=== PATIENT | male | born 1995 | race Caucasian/White ===

== ENCOUNTER 2018-06-02 15:58 | Emergency (ER) | payer BC, OTHER ==
[2018-06-02] MEDS ORDERED: HYDROmorphone 1 MG/ML Syringe IM ONE (16:06)
--- NOTE | 2018-06-02 16:06 | EDM.PDOC ---
<Nusrat Corona - Last Filed: 06/02/18 16:46> ED HPI GENERAL MEDICAL PROBLEM - General Chief Complaint: Upper Extremity Injury/Pain Stated Complaint: LEFT ARM INJURY Time Seen by Provider: 06/02/18 16:06 - History of Present Illness INITIAL COMMENTS - FREE TEXT/NARRATIVE: This is Dr. Corona dictating a procedure note on this patient. After the x- rays were performed and there were pulses both palpable and by Doppler it was decided that due to this extreme angulation of this fracture and displacement of the fracture that it would need at least some reduction before transport to [facility]. Currently we do not have orthopedics coverage and the patient and grandmother bedside are made aware of that. The patient was given IV Dilaudid as well as a local block of lidocaine without epinephrine. Using traction with manipulation of the distal fragment reduction was clinically achieved with significant improvement of the angulation of the distal fracture fragment. Pulses were rechecked and they are strong and palpable. A short arm post mold was placed immediately and postreduction x-rays were ordered. Once these x-rays are reviewed we will contact the orthopedic surgeon at [facility] for transfer of care and further recommendations. The patient tolerated this procedure well and there were no complications - Related Data Allergies Allergy/AdvReac Type Severity Reaction Status Date / Time No Known Allergies Allergy Verified 05/27/15 18:49 Home Meds: Home Meds . [No Known Home Meds] 05/27/15 [History] Course - Vital Signs Last Recorded V/S: Last Vital Signs Temp 96.2 F 06/02/18 16:08 Pulse 82 06/02/18 16:08 Resp 20 06/02/18 16:08 BP 146/80 H 06/02/18 16:08 Pulse Ox 97 06/02/18 16:08 - Orders/Labs/Meds Meds: Medications Discontinued Medications Generic Name Dose Route Start Last Admin Trade Name Freq PRN Reason Stop Dose Admin Hydromorphone HCl 1 mg 06/02/18 16:06 06/02/18 16:19 Dilaudid IM 06/02/18 16:07 Not Given ONETIME ONE Hydromorphone HCl 1 mg 06/02/18 16:07 06/02/18 16:18 Dilaudid IVPUSH 06/02/18 16:08 1 mg ONETIME ONE Administration Hydromorphone HCl 1 mg 06/02/18 16:33 06/02/18 16:39 Dilaudid IVPUSH 06/02/18 16:34 1 mg ONETIME ONE Administration Lidocaine HCl 15 ml 06/02/18 16:26 06/02/18 16:39 Xylocaine-Mpf 1% INJECT 06/02/18 16:27 15 ml ONETIME ONE Administration Ondansetron HCl 4 mg 06/02/18 16:07 06/02/18 16:18 Zofran IVPUSH 06/02/18 16:08 4 mg ONETIME ONE Administration Departure - Departure Disposition: Home, Self-Care 01 Clinical Impression: Colles' fracture of left radius Qualifiers: Encounter type: initial encounter Fracture type: closed Qualified Code(s): S52.532A - Colles' fracture of left radius, initial encounter for closed fracture - Discharge Information Instructions: Colles Fracture Referrals: PCP,None [Primary Care Provider] - Forms: ED Department Discharge Additional Instructions: The following information is given to patients seen in the emergency department who are being discharged to home. This information is to outline your options for follow-up care. We provide all patients seen in our emergency department with a follow-up referral. The need for follow-up, as well as the timing and circumstances, are variable depending upon the specifics of your emergency department visit. If you don't have a primary care physician on staff, we will provide you with a referral. We always advise you to contact your personal physician following an emergency department visit to inform them of the circumstance of the visit and for follow-up with them and/or the need for any referrals to a consulting specialist. The emergency department will also refer you to a specialist when appropriate. This referral assures that you have the opportunity for follow-up care with a specialist. All of these measure are taken in an effort to provide you with optimal care, which includes your follow-up. Under all circumstances we always encourage you to contact your private physician who remains a resource for coordinating your care. When calling for follow-up care, please make the office aware that this follow-up is from your recent emergency room visit. If for any reason you are refused follow-up, please contact the [facility] Emergency Department at and asked to speak to the emergency department charge nurse. [facility] - Orthopedic Clinic: [facility] [address] [place] [address], [address] [place] [address] [facility] [address]: Dr Artemio Conroy (Hand Surgeon) [facility] [id number] 1. Rest, ice, and elevate the affected extremity as able. Keep the splint on until you're cleared by the orthopedic provider. Use the sling to keep the extremity elevated and for comfort purposes. Continue to monitor for the signs that we discussed which included but are not limited to: Numbness of hand, skin cold/discoloration of hand, increased pain, etc... Those symptoms would prompt her to return to the emergency room 2. Tylenol and/or ibuprofen as needed for pain management. [place] for moderate to severe pain. This medication may cause drowsiness a do not take it while driving or needing to be functioning outside of the house. 3. Tomorrow morning please call the orthopedic provider to set up a follow-up appointment. You may call our orthopedic clinic here in [place] or at [facility] in [place] (Dr Conroy [phone]). I would like you evaluated in the next 1-2 days. Return to the ED as needed and as discussed. <Hola Mon E - Last Filed: 06/02/18 17:45> ED HPI GENERAL MEDICAL PROBLEM - General Source of Information: Reports: Patient History Limitations: Reports: No Limitations - History of Present Illness INITIAL COMMENTS - FREE TEXT/NARRATIVE: HISTORY AND PHYSICAL: History of present illness: Patient is a 23-year-old male who presents to the emergency room with complaints of left wrist pain. He states he tripped going up the stairs on an outstretched hand. He has an obvious deformity of the left wrist. Increased pain with palpation or range of motion. He denies any previous injury or trauma at the affected extremity. He denies hitting his head or any loss of consciousness. Denies any other extremity involvement or concerns other than the wrist. He denies any fever, chills, chest pain, shortness of breath or cough. Denies any GI or symptoms. Review of systems: As per history of present illness and below otherwise all systems reviewed and negative. Past medical history: As per history of present illness and as reviewed below otherwise noncontributory. Surgical history: As per history of present illness and as reviewed below otherwise noncontributory. Social history: See social history for further information Family history: As per history of present illness and as reviewed below otherwise noncontributory. Physical exam: General: Well-developed and well-nourished 23-year-old male. Alert and oriented. Nontoxic appearing and in no acute distress. HEENT: Atraumatic, normocephalic, pupils equal and reactive bilaterally, negative for conjunctival pallor or scleral icterus, mucous membranes moist, TMs normal bilaterally, throat clear, neck supple, nontender, trachea midline. No drooling or trismus noted. No meningeal signs. No hot potato voice noted. Lungs: Clear to auscultation, breath sounds equal bilaterally, chest nontender. Heart: S1S2, regular rate and rhythm without overt murmur Abdomen: Soft, nondistended, nontender. Negative for masses or hepatosplenomegaly. Negative for costovertebral tenderness. Pelvis: Stable nontender. Genitourinary: Deferred. Rectal: Deferred. Skin: Intact, warm, dry. No lesions or rashes noted. Extremities: Obvious deformity of the left wrist. Palpable strong radial pulse on the left wrist. Doppler was used to feel the ulnar pulse. Capillary refill less than 3 seconds. Moves all other extremities without difficulty or deficits. Neurovascular unremarkable. Neuro: Awake, alert, oriented. Cranial nerves II through XII unremarkable. Cerebellum unremarkable. Motor and sensory unremarkable throughout. Exam nonfocal. Notes: Comminuted distal radial fracture. There is a dislocation of the shaft posterior relation to the proximal fracture fragment. The radial pulse was palpable and strong. Ulnar pulse was audible with the Doppler. Patient was educated on the need for closed reduction, he is agreeable. Hematoma block with 1% lidocaine along with IV Dilaudid. This was easily reduced by myself and Dr. Corona. (Please see Cj's note). Postreduction he does have a strong radial and ulnar pulse. He is able to move his fingertips and has good sensation. A half cast fiberglass splint was applied and education was given. We'll provide with a sling for comfort. He states that he does feel improved after the reduction although does have some mild to moderate pain due to the fracture. Dr Artemio Conroy, hand surgeon at [facility] in [place], was consult did on this case. He states that as long as the pulses are palpable and it has been reduced the patient may be discharged to home with pain medication and splint, to follow -up with orthopedic in the next 1-3 days. Post reduction shows a less displaced and angulation compared with the prior study. I did get consent from the patient to electronically send pictures of the pre-and post reduction x-rays to the hand surgeon. Dr. Conroy reports that it does look improved and he will end up needing surgery but does not need to the emergently transferred today. Patient does have good sensation to the first second and third digit with minimal sensation of the fourth and fifth digit. He is able to move all digits, limited. Rafiq reports that they prefer the swelling to go down her to doing surgery. This conversation/consult was discussed with patient and family member at bedside. I did give them Dr. Artemio Conroy phone number along with our local orthopedic provider should be available to make an appointment on Sunday. They may choose where to receive their orthopedic care. Diagnostics: X-ray right wrist Therapeutics: Pretty Rojas Impression: Displaced fracture of the distal radius, closed, left Plan: 1. Rest, ice, and elevate the affected extremity as able. Keep the splint on until you're cleared by the orthopedic provider. Use the sling to keep the extremity elevated and for comfort purposes. Continue to monitor for the signs that we discussed which included but are not limited to: Numbness of hand, skin cold/discoloration of hand, increased pain, etc... Those symptoms would prompt her to return to the emergency room 2. Tylenol and/or ibuprofen as needed for pain management. [place] for moderate to severe pain. This medication may cause drowsiness a do not take it while driving or needing to be functioning outside of the house. 3. Tomorrow morning please call the orthopedic provider to set up a follow-up appointment. You may call our orthopedic clinic here in [place] or at [facility] in [place] (Dr Conroy [phone]). I would like you evaluated in the next 1-2 days. Return to the ED as needed and as discussed. Definitive disposition and diagnosis as appropriate pending reevaluation and review of above. left forearm Pain Score (Numeric/FACES): 10 Past Medical History - Past Health History Medical/Surgical History: Denies Medical/Surgical History Review of Systems - Review of Systems Review Of Systems: ROS reveals no pertinent complaints other than HPI. ED EXAM, GENERAL - Physical Exam Exam: See Below (See dictation) Course - Vital Signs Last Recorded V/S: Last Vital Signs Temp 96.2 F 06/02/18 16:08 Pulse 82 06/02/18 16:08 Resp 20 06/02/18 16:08 BP 146/80 H 06/02/18 16:08 Pulse Ox 97 06/02/18 16:08 - Orders/Labs/Meds Meds: Medications Discontinued Medications Generic Name Dose Route Start Last Admin Trade Name Freq PRN Reason Stop Dose Admin Hydromorphone HCl 1 mg 06/02/18 16:06 06/02/18 16:19 Dilaudid IM 06/02/18 16:07 Not Given ONETIME ONE Hydromorphone HCl 1 mg 06/02/18 16:07 06/02/18 16:18 Dilaudid IVPUSH 06/02/18 16:08 1 mg ONETIME ONE Administration Hydromorphone HCl 1 mg 06/02/18 16:33 06/02/18 16:39 Dilaudid IVPUSH 06/02/18 16:34 1 mg ONETIME ONE Administration Lidocaine HCl 15 ml 06/02/18 16:26 06/02/18 16:39 Xylocaine-Mpf 1% INJECT 06/02/18 16:27 15 ml ONETIME ONE Administration Ondansetron HCl 4 mg 06/02/18 16:07 06/02/18 16:18 Zofran IVPUSH 06/02/18 16:08 4 mg ONETIME ONE Administration Departure - Departure Time of Disposition: 17:07
[2018-06-02] MEDS ORDERED: HYDROmorphone 2 MG/ML Syringe IVPUSH ONE (16:07)
[2018-06-02] MEDS ORDERED: Ondansetron 4 MG/2 ML SDV IVPUSH ONE (16:07)
--- NOTE | 2018-06-02 16:28 | CR ---
Indication: Tripped on stairs. Technique: Two views of the left wrist were obtained. Comparison: None Findings: A comminuted fracture of the distal radius is identified. This is an intra-articular fracture. The distal fracture fragment is dislocated 1 shaft with posterior relation to the proximal fracture fragment. Impression: Comminuted distal radial fracture. Dictated by Noni Betancourt MD @ Jun 02 2018 4:26PM Signed by Dr. Noni Betancourt @ Jun 02 2018 4:26PM
[2018-06-02] MEDS ORDERED: HYDROmorphone 1 MG/ML Syringe IVPUSH ONE (16:33)
--- NOTE | 2018-06-02 17:20 | CR ---
INDICATION: Post reduction. COMPARISON: X-rays 06/02/2018. Findings called Comminuted impacted intra-articular distal radius fracture with dorsal displacement and angulation. There is less displacement and angulation compared to the prior study. Overlying cast obscures fine osseous details. Dictated by Anabel Marcial MD @ Jun 02 2018 5:16PM Signed by Dr. Anabel Marcial @ Jun 02 2018 5:18PM
[2018-06-02 18:00] VITALS: BP 150/77
== END 2018-06-02 17:59 | disposition home or self-care (01) ==
LOC: MW.ED 15:58
DX: S52.532A Colles' fracture of left radius, initial encounter for closed fracture (principal); X50.9XXA Other and unspecified overexertion or strenuous movements or postures, initial encounter
CPT/HCPCS: 25605; 73100; 96374; 96375; 99283; J1170; J2405

== ENCOUNTER 2018-07-06 15:11 | Emergency (ER) | payer BC ==
[2018-07-06] MEDS ORDERED: Diphtheria,Pertussis(Acell),Tetanus Vaccine 0.5 ML Syringe IM ONE (15:24)
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
[2018-07-06] MEDS ORDERED: Diphtheria,Pertussis(Acell),Tetanus Vaccine 0.5 ML Syringe ONE (15:35)
[2018-07-06 15:36] VITALS: BP 113/71
== END 2018-07-06 15:45 | disposition home or self-care (01) ==
LOC: MW.ED 15:11
DX: T23.022D Burn of unspecified degree of single left finger (nail) except thumb, subsequent encounter (principal); X58.XXXD Exposure to other specified factors, subsequent encounter
CPT/HCPCS: 90471; 90715; 99282

== ENCOUNTER 2018-11-05 08:40 | Emergency (ER) | payer BC ==
[2018-11-05] MEDS ORDERED: Silver Sulfadiazine 1% Crm 50 GM Tube TOP ONE (08:46)
[2018-11-05] MEDS ORDERED: Morphine 10 MG/ML Syringe IM ONE (08:49)
[2018-11-05] MEDS ORDERED: Ondansetron 4 MG Tab.DIS PO ONE (08:49)
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
[2018-11-05 09:26] VITALS: BP 126/90
== END 2018-11-05 09:25 | disposition home or self-care (01) ==
LOC: MW.ED 08:40
DX: T23.271A Burn of second degree of right wrist, initial encounter (principal); T22.111A Burn of first degree of right forearm, initial encounter; T23.001A Burn of unspecified degree of right hand, unspecified site, initial encounter; X10.2XXA Contact with fats and cooking oils, initial encounter
CPT/HCPCS: 16020; 96372; 99283; A9270; J2270

== ENCOUNTER 2018-11-10 11:34 | Emergency (ER) | payer OTHER, BC ==
[2018-11-10] MEDS ORDERED: Silver Sulfadiazine 1% Crm 50 GM Tube TOP ONE (11:53)
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
[2018-11-10 12:14] VITALS: BP 114/68
== END 2018-11-10 12:12 | disposition home or self-care (01) ==
LOC: MW.ED 11:34
DX: T22.211D Burn of second degree of right forearm, subsequent encounter (principal); X10.2XXD Contact with fats and cooking oils, subsequent encounter
CPT/HCPCS: 16020; 99283; A9270

== ENCOUNTER 2018-12-23 09:56 | Emergency (ER) | payer BC, OTHER ==
[2018-12-23 10:00] VITALS: BP 135/77
[2018-12-23] MEDS ORDERED: Aspirin 81 MG Tab.Chew PO ONE (10:00)
--- NOTE | 2018-12-23 10:25 | EDM.PDOC ---
ED HPI GENERAL MEDICAL PROBLEM - General Chief Complaint: Chest Pain Stated Complaint: CHEST DISCOMFORT Time Seen by Provider: 12/23/18 09:56 Source of Information: Reports: Patient History Limitations: Reports: No Limitations - History of Present Illness INITIAL COMMENTS - FREE TEXT/NARRATIVE: HISTORY AND PHYSICAL: History of present illness: Patient is a 23-year-old male presents to the ED today with concern of mid chest pain 1 hour ago. Patient states he was standing at work when suddenly he had midsternal chest pain. She states it makes him feel slightly short of breath. Patient states he has not had these symptoms before and denies any health history. Patient states he has had a sore throat over the past couple days as well as well as had an increase in cough. Patient states nothing makes her pain better or worse and the pain does not radiate anywhere. Patient denies any other symptoms or concerns. Patient states he smokes a pack a day and has so for a few years Patient denies fever, chills. Denies headache, neck stiff ness, change in vision , syncope, or near syncope. Denies nausea, vomiting, abdominal pain, diarrhea, constipation, or dysuria. Has not noted any blood in urine or stool. Patient has been eating and drinking appropriately. Review of systems: As per history of present illness and below otherwise all systems reviewed and negative. Past medical history: As per history of present illness and as reviewed below otherwise noncontributory. Surgical history: As per history of present illness and as reviewed below otherwise noncontributory. Social history: See social history for further information Family history: As per history of present illness and as reviewed below otherwise noncontributory. Physical exam: General: Patient is alert, oriented, and in no acute distress. Patient sitting comfortably on exam table. HEENT: Atraumatic, normocephalic, pupils equal and reactive bilaterally, negative for conjunctival pallor or scleral icterus, mucous membranes moist, TMs normal bilaterally, throat is moderately erythematous and tonsils are mildly enlarged without white exudate, neck supple, nontender, trachea midline. No drooling or trismus noted. No meningeal signs. No hot potato voice noted. Lungs: Clear to auscultation, breath sounds equal bilaterally, chest nontender. Heart: S1S2, regular rate and rhythm without overt murmur Abdomen: Soft, nondistended, nontender. Negative for masses or hepatosplenomegaly. Negative for costovertebral tenderness. Pelvis: Stable nontender. Genitourinary: Deferred. Rectal: Deferred. Skin: Intact, warm, dry. No lesions or rashes noted. Extremities: Atraumatic, negative for cords or calf pain. Neurovascular unremarkable. Neuro: Awake, alert, oriented. Cranial nerves II through XII unremarkable. Cerebellum unremarkable. Motor and sensory unremarkable throughout. Exam nonfocal. Notes: Patient expresses resolution of symptoms throughout stay in ED. Patient has been having a progressive cough over the past week. Will treat for a potential early pneumonia. Voices understanding and is agreeable to plan of care. Denies any further questions or concerns at this time. Diagnostics: CBC, CMP, UA, EKG, chest x-ray, UA, troponin, lipase Therapeutics: Aspirin Prescription: Pro-air inhaler, Azithromycin Impression: Chest pain Cough Tonsillitis Plan: 1. Use inhaler as prescribed. Follow-up with your primary care provider as discussed. 2. You can alternate ibuprofen and Tylenol as directed for pain and discomfort. Return to the ED as needed and as discussed. Definitive disposition and diagnosis as appropriate pending reevaluation and review of above. CHEST Pain Score (Numeric/FACES): 2 - Related Data Allergies Allergy/AdvReac Type Severity Reaction Status Date / Time No Known Allergies Allergy Verified 12/23/18 09:58 Home Meds: Home Meds . [No Known Home Meds] 12/23/18 [History] Past Medical History - Past Health History Medical/Surgical History: Denies Medical/Surgical History HEENT History: Reports: None Cardiovascular History: Reports: None Respiratory History: Reports: None Gastrointestinal History: Reports: None Genitourinary History: Reports: None Musculoskeletal History: Reports: None Neurological History: Reports: None Psychiatric History: Reports: None Endocrine/Metabolic History: Reports: None Hematologic History: Reports: None Immunologic History: Reports: None Oncologic (Cancer) History: Reports: None Dermatologic History: Reports: None - Infectious Disease History Infectious Disease History: Reports: Chicken Pox, Shingles - Past Surgical History Head Surgeries/Procedures: Reports: None HEENT Surgical History: Reports: None Cardiovascular Surgical History: Reports: None Respiratory Surgical History: Reports: None GI Surgical History: Reports: None Male Surgical History: Reports: None Endocrine Surgical History: Reports: None Neurological Surgical History: Reports: None Musculoskeletal Surgical History: Reports: Other (See Below) Other Musculoskeletal Surgeries/Procedures:: left wrist, plate/brittney/screws Oncologic Surgical History: Reports: None Dermatological Surgical History: Reports: None Social & Family History - Family History Family Medical History: Noncontributory - Tobacco Use Smoking Status *Q: Current Every Day Smoker Years of Tobacco use: 6 Packs/Tins Daily: 0.5 - Caffeine Use Caffeine Use: Reports: None - Recreational Drug Use Recreational Drug Use: No ED ROS GENERAL - Review of Systems Review Of Systems: ROS reveals no pertinent complaints other than HPI. ED EXAM, GENERAL - Physical Exam Exam: See Below (see dictation) Course - Vital Signs Last Recorded V/S: Last Vital Signs Temp 36.9 C 12/23/18 09:58 Pulse 92 12/23/18 09:58 Resp 16 12/23/18 09:58 BP 135/77 12/23/18 09:58 Pulse Ox 98 12/23/18 09:58 - Orders/Labs/Meds Orders: Active Orders 24 hr Category Date Time Status EKG Documentation Completion [RC] STAT Care 12/23/18 09:56 Active CULTURE STREP A CONFIRMATION [RM] Stat Lab 12/23/18 11:15 Results CULTURE URINE [RM] Stat Lab 12/23/18 10:25 Received STREP SCRN A RAPID W CULT CONF [RM] Stat Lab 12/23/18 11:15 Results UA W/MICROSCOPIC [URIN] Stat Lab 12/23/18 10:25 Results Labs: Laboratory Tests 12/23/18 12/23/18 12/23/18 Range/Units 09:57 10:09 10:09 WBC 14.03 H (4.0-11.0) K/uL RBC 4.73 (4.50-5.90) M/uL Hgb 14.3 (13.0-17.0) g/dL Hct 43.3 (38.0-50.0) % MCV 91.5 (80.0-98.0) fL MCH 30.2 (27.0-32.0) pg MCHC 33.0 (31.0-37.0) g/dL RDW Std Deviation 43.7 (28.0-62.0) fl RDW Coeff of Brian 13 (11.0-15.0) % Plt Count 271 (150-400) K/uL MPV 9.10 (7.40-12.00) fL Neut % (Auto) 84.4 H (48.0-80.0) % Lymph % (Auto) 8.6 L (16.0-40.0) % [place] % (Auto) 5.8 (0.0-15.0) % Eos % (Auto) 1.0 (0.0-7.0) % Baso % (Auto) 0.2 (0.0-1.5) % Neut # (Auto) 11.8 H (1.4-5.7) K/uL Lymph # (Auto) 1.2 (0.6-2.4) K/uL [place] # (Auto) 0.8 (0.0-0.8) K/uL Eos # (Auto) 0.1 (0.0-0.7) K/uL Baso # (Auto) 0.0 (0.0-0.1) K/uL Nucleated RBC % 0.0 /100WBC Nucleated RBCs # 0 K/uL Sodium 138 (136-148) mmol/L Potassium 3.9 (3.5-5.1) mmol/L Chloride 105 (98-107) mmol/L Carbon Dioxide 22.4 (21.0-32.0) mmol/L BUN 9 (7.0-18.0) mg/dL Creatinine 1.1 (0.8-1.3) mg/dL Est Cr Clr Drug Dosing 95.06 mL/min Estimated GFR (MDRD) > 60.0 ml/min Glucose 131 H (74-106) mg/dL Calcium 9.1 (8.5-10.1) mg/dL Total Bilirubin 0.3 (0.2-1.0) mg/dL AST 14 L (15-37) IU/L ALT 22 (14-63) IU/L Alkaline Phosphatase 84 (46-116) U/L Troponin I < 0.050 (0.000-0.056) ng/mL Total Protein 6.8 (6.4-8.2) g/dL Albumin 3.4 (3.4-5.0) g/dL Globulin 3.4 (2.6-4.0) g/dL Albumin/Globulin Ratio 1.0 (0.9-1.6) Lipase 59 L (73-393) U/L Urine Color Urine Appearance Urine pH (5.0-8.0) Ur Specific [place] (1.001-1.035) Urine Protein (NEGATIVE) mg/dL Urine Glucose (UA) (NEGATIVE) mg/dL Urine Ketones (NEGATIVE) mg/dL Urine Occult Blood (NEGATIVE) Urine Nitrite (NEGATIVE) Urine Bilirubin (NEGATIVE) Urine Urobilinogen (<2.0) EU/dL Ur Leukocyte Esterase (NEGATIVE) 12/23/18 Range/Units 10:25 WBC (4.0-11.0) K/uL RBC (4.50-5.90) M/uL Hgb (13.0-17.0) g/dL Hct (38.0-50.0) % MCV (80.0-98.0) fL MCH (27.0-32.0) pg MCHC (31.0-37.0) g/dL RDW Std Deviation (28.0-62.0) fl RDW Coeff of Brian (11.0-15.0) % Plt Count (150-400) K/uL MPV (7.40-12.00) fL Neut % (Auto) (48.0-80.0) % Lymph % (Auto) (16.0-40.0) % [place] % (Auto) (0.0-15.0) % Eos % (Auto) (0.0-7.0) % Baso % (Auto) (0.0-1.5) % Neut # (Auto) (1.4-5.7) K/uL Lymph # (Auto) (0.6-2.4) K/uL [place] # (Auto) (0.0-0.8) K/uL Eos # (Auto) (0.0-0.7) K/uL Baso # (Auto) (0.0-0.1) K/uL Nucleated RBC % /100WBC Nucleated RBCs # K/uL Sodium (136-148) mmol/L Potassium (3.5-5.1) mmol/L Chloride (98-107) mmol/L Carbon Dioxide (21.0-32.0) mmol/L BUN (7.0-18.0) mg/dL Creatinine (0.8-1.3) mg/dL Est Cr Clr Drug Dosing mL/min Estimated GFR (MDRD) ml/min Glucose (74-106) mg/dL Calcium (8.5-10.1) mg/dL Total Bilirubin (0.2-1.0) mg/dL AST (15-37) IU/L ALT (14-63) IU/L Alkaline Phosphatase (46-116) U/L Troponin I (0.000-0.056) ng/mL Total Protein (6.4-8.2) g/dL Albumin (3.4-5.0) g/dL Globulin (2.6-4.0) g/dL Albumin/Globulin Ratio (0.9-1.6) Lipase (73-393) U/L Urine Color YELLOW Urine Appearance CLEAR Urine pH 6.0 (5.0-8.0) Ur Specific [place] >= 1.030 (1.001-1.035) Urine Protein NEGATIVE (NEGATIVE) mg/dL Urine Glucose (UA) NEGATIVE (NEGATIVE) mg/dL Urine Ketones NEGATIVE (NEGATIVE) mg/dL Urine Occult Blood NEGATIVE (NEGATIVE) Urine Nitrite NEGATIVE (NEGATIVE) Urine Bilirubin NEGATIVE (NEGATIVE) Urine Urobilinogen 0.2 (<2.0) EU/dL Ur Leukocyte Esterase TRACE H (NEGATIVE) Meds: Medications Discontinued Medications Generic Name Dose Route Start Last Admin Trade Name Vanita PRN Reason Stop Dose Admin Aspirin 324 mg 12/23/18 10:00 12/23/18 10:26 Aspirin PO 12/23/18 10:01 324 mg ONETIME ONE Administration Departure - Departure Time of Disposition: 11:48 Disposition: Home, Self-Care 01 Clinical Impression: Cough, Tonsillitis Chest pain Qualifiers: Chest pain type: unspecified Qualified Code(s): R07.9 - Chest pain, unspecified - Discharge Information Referrals: PCP,Unobtain [Primary Care Provider] - Forms: ED Department Discharge Additional Instructions: The following information is given to patients seen in the emergency department who are being discharged to home. This information is to outline your options for follow-up care. We provide all patients seen in our emergency department with a follow-up referral. The need for follow-up, as well as the timing and circumstances, are variable depending upon the specifics of your emergency department visit. If you don't have a primary care physician on staff, we will provide you with a referral. We always advise you to contact your personal physician following an emergency department visit to inform them of the circumstance of the visit and for follow-up with them and/or the need for any referrals to a consulting specialist. The emergency department will also refer you to a specialist when appropriate. This referral assures that you have the opportunity for follow-up care with a specialist. All of these measure are taken in an effort to provide you with optimal care, which includes your follow-up. Under all circumstances we always encourage you to contact your private physician who remains a resource for coordinating your care. When calling for follow-up care, please make the office aware that this follow-up is from your recent emergency room visit. If for any reason you are refused follow-up, please contact the [facility] Emergency Department at and asked to speak to the emergency department charge nurse. [facility] [address] [place] [id number] [facility] [address] [place] [id number] 1. Use inhaler as prescribed. Follow-up with your primary care provider as discussed. 2. You can alternate ibuprofen and Tylenol as directed for pain and discomfort. Return to the ED as needed and as discussed. - My Orders Last 24 Hours: My Active Orders 12/23/18 09:56 EKG Documentation Completion [RC] STAT 12/23/18 10:25 CULTURE URINE [RM] Stat UA W/MICROSCOPIC [URIN] Stat 12/23/18 11:15 CULTURE STREP A CONFIRMATION [RM] Stat STREP SCRN A RAPID W CULT CONF [RM] Stat - Assessment/Plan Last 24 Hours: My Active Orders 12/23/18 09:56 EKG Documentation Completion [RC] STAT 12/23/18 10:25 CULTURE URINE [RM] Stat UA W/MICROSCOPIC [URIN] Stat 12/23/18 11:15 CULTURE STREP A CONFIRMATION [RM] Stat STREP SCRN A RAPID W CULT CONF [RM] Stat
[2018-12-23 10:40] LABS: CHLORIDE,CL 105 mmol/L (98-107); SODIUM,NA 138 mmol/L (136-148)
--- NOTE | 2018-12-23 11:06 | CR ---
INDICATION: Chest pain. Findings: A single portable CXR shows a normal cardiac and mediastinal silhouette. The lungs show no focal pulmonary opacities. Sharp pleural margins. No pneumothorax. Impression: No evidence of acute pulmonary abnormalities. Dictated by: Magno Marcial MD @ 12/23/2018 11:04:35 (Electronically Signed)
== END 2018-12-23 12:05 | disposition home or self-care (01) ==
LOC: MW.ED 09:56
DX: J03.90 Acute tonsillitis, unspecified (principal); R07.2 Precordial pain; F17.210 Nicotine dependence, cigarettes, uncomplicated
CPT/HCPCS: 36415; 71045; 80053; 81001; 83690; 84484; 85025; 87081; 87086; 87880; 93005; 99285; A9270; 99283

== ENCOUNTER 2019-01-06 06:51 | Emergency (ER) | payer BC ==
[2019-01-06] MEDS ORDERED: LORazepam 1 MG Tab PO ONE (07:07)
[2019-01-06 07:58] LABS: BLOOD UREA NITROGEN,BUN 10 mg/dL (7.0-18.0); CARBON DIOXIDE,CO2 26.5 mmol/L (21.0-32.0); CHLORIDE,CL 104 mmol/L (98-107); GLUCOSE RANDOM 96 mg/dL (74-106); POTASSIUM,K 4.4 mmol/L (3.5-5.1); SODIUM,NA 142 mmol/L (136-148)
--- NOTE | 2019-01-06 08:25 | CR ---
HISTORY: Chest pain, shortness of breath. TECHNIQUE: Two views of the chest. COMPARISON: 12/23/2018. FINDINGS: No acute lung infiltrate or pulmonary edema. No pneumothorax or pleural effusion. Cardiac size and pulmonary vasculature within normal limits. No acute bony abnormality. IMPRESSION: No acute disease. Dictated by Nik Funez MD @ 01/06/2019 8:23:17 AM Dictated by: Nik Funez MD @ 01/06/2019 08:23:25 (Electronically Signed)
--- NOTE | 2019-01-06 08:31 | EDM.PDOC ---
ED HPI GENERAL MEDICAL PROBLEM - General Chief Complaint: Chest Pain Stated Complaint: CHEST PAIN Time Seen by Provider: 01/06/19 07:00 Source of Information: Reports: Patient History Limitations: Reports: No Limitations - History of Present Illness INITIAL COMMENTS - FREE TEXT/NARRATIVE: History of present illness: []Patient presents with chest pain and shortness of breath while standing. He was seen here on December 25 with the same symptoms with a negative workup. Is given an albuterol inhaler, antibiotics and steroids without relief. Review of systems: As per history of present illness and below otherwise all systems reviewed and negative. Past medical history: As per history of present illness and as reviewed below otherwise noncontributory. Surgical history: As per history of present illness and as reviewed below otherwise noncontributory. Social history: No reported history of drug or alcohol abuse. Family history: As per history of present illness and as reviewed below otherwise noncontributory. Physical exam: General: Well developed, well nourished in NAD HEENT: Atraumatic, normocephalic, pupils reactive, negative for conjunctival pallor or scleral icterus, mucous membranes moist, throat clear, neck supple, nontender, trachea midline. Lungs: Clear to auscultation, breath sounds equal bilaterally, chest nontender. Heart: S1S2, regular, negative for clicks, rubs, or JVD. Abdomen: NABS, Soft, nondistended, nontender. Negative for masses or hepatosplenomegaly. Negative for costovertebral tenderness. Pelvis: Stable nontender. Genitourinary: Deferred. Rectal: Deferred. Extremities: Atraumatic, negative for cords or calf pain. Neurovascular unremarkable. Neuro: Awake, alert, oriented. Cranial nerves II through XII unremarkable. Cerebellum unremarkable. Motor and sensory unremarkable throughout. Exam nonfocal. Skin:warm and dry Diagnostics: EKG, chest x-ray, CBC, chemistry, drug screen, troponin Therapeutics: Monitored, Ativan ED Course: Stable, improved Impression: Cocaine use Prescriptions: None Plan: Take meds as directed, follow up with your primary care physician, return to ER if symptoms worsen or change. Definitive disposition and diagnosis as appropriate pending reevaluation and review of above. chest Pain Score (Numeric/FACES): 6 - Related Data Allergies Allergy/AdvReac Type Severity Reaction Status Date / Time No Known Allergies Allergy Verified 01/06/19 07:01 Home Meds: Home Meds . [No Known Home Meds] 12/23/18 [History] Past Medical History - Past Health History Medical/Surgical History: Denies Medical/Surgical History HEENT History: Reports: None Cardiovascular History: Reports: None Respiratory History: Reports: Other (See Below) Other Respiratory History: pneumonia Gastrointestinal History: Reports: None Genitourinary History: Reports: None Musculoskeletal History: Reports: None Neurological History: Reports: None Psychiatric History: Reports: None Endocrine/Metabolic History: Reports: None Hematologic History: Reports: None Immunologic History: Reports: None Oncologic (Cancer) History: Reports: None Dermatologic History: Reports: None - Infectious Disease History Infectious Disease History: Reports: Chicken Pox, Shingles - Past Surgical History Head Surgeries/Procedures: Reports: None HEENT Surgical History: Reports: None Cardiovascular Surgical History: Reports: None GI Surgical History: Reports: None Male Surgical History: Reports: None Endocrine Surgical History: Reports: None Neurological Surgical History: Reports: None Musculoskeletal Surgical History: Reports: Other (See Below) Other Musculoskeletal Surgeries/Procedures:: left wrist, plate/brittney/screws Oncologic Surgical History: Reports: None Dermatological Surgical History: Reports: None Social & Family History - Family History Family Medical History: Noncontributory - Tobacco Use Smoking Status *Q: Current Every Day Smoker Years of Tobacco use: 5 Packs/Tins Daily: 1 - Caffeine Use Caffeine Use: Reports: None - Recreational Drug Use Recreational Drug Use: No ED ROS GENERAL - Review of Systems Review Of Systems: See Below ED EXAM, GENERAL - Physical Exam Exam: See Below Course - Vital Signs Last Recorded V/S: Last Vital Signs Temp 97 F 01/06/19 06:51 Pulse 88 01/06/19 06:51 Resp 32 H 01/06/19 06:51 BP 129/78 01/06/19 06:51 Pulse Ox 99 01/06/19 06:51 - Orders/Labs/Meds Orders: Active Orders 24 hr Category Date Time Status EKG Documentation Completion [RC] STAT Care 01/06/19 06:58 Active EKG Documentation Completion [RC] STAT Care 01/06/19 07:07 Inactive Labs: Laboratory Tests 01/06/19 01/06/19 01/06/19 Range/Units 07:07 07:29 07:29 WBC 14.65 H (4.0-11.0) K/uL RBC 5.04 (4.50-5.90) M/uL Hgb 15.2 (13.0-17.0) g/dL Hct 45.1 (38.0-50.0) % MCV 89.5 (80.0-98.0) fL MCH 30.2 (27.0-32.0) pg MCHC 33.7 (31.0-37.0) g/dL RDW Std Deviation 41.7 (28.0-62.0) fl RDW Coeff of Brian 13 (11.0-15.0) % Plt Count 328 (150-400) K/uL MPV 9.20 (7.40-12.00) fL Neut % (Auto) 78.1 (48.0-80.0) % Lymph % (Auto) 14.5 L (16.0-40.0) % [place] % (Auto) 6.7 (0.0-15.0) % Eos % (Auto) 0.5 (0.0-7.0) % Baso % (Auto) 0.2 (0.0-1.5) % Neut # (Auto) 11.4 H (1.4-5.7) K/uL Lymph # (Auto) 2.1 (0.6-2.4) K/uL [place] # (Auto) 1.0 H (0.0-0.8) K/uL Eos # (Auto) 0.1 (0.0-0.7) K/uL Baso # (Auto) 0.0 (0.0-0.1) K/uL Nucleated RBC % 0.0 /100WBC Nucleated RBCs # 0 K/uL Sodium 142 (136-148) mmol/L Potassium 4.4 (3.5-5.1) mmol/L Chloride 104 (98-107) mmol/L Carbon Dioxide 26.5 (21.0-32.0) mmol/L BUN 10 (7.0-18.0) mg/dL Creatinine 1.1 (0.8-1.3) mg/dL Est Cr Clr Drug Dosing 98.48 mL/min Estimated GFR (MDRD) > 60.0 ml/min Glucose 96 (74-106) mg/dL Calcium 9.9 (8.5-10.1) mg/dL Total Bilirubin 0.3 (0.2-1.0) mg/dL AST 12 L (15-37) IU/L ALT 24 (14-63) IU/L Alkaline Phosphatase 78 (46-116) U/L Troponin I < 0.050 (0.000-0.056) ng/mL Total Protein 7.2 (6.4-8.2) g/dL Albumin 3.7 (3.4-5.0) g/dL Globulin 3.5 (2.6-4.0) g/dL Albumin/Globulin Ratio 1.1 (0.9-1.6) Urine Opiates Screen NEGATIVE (NEGATIVE) Ur Oxycodone Screen NEGATIVE (NEGATIVE) Urine Methadone Screen NEGATIVE (NEGATIVE) Ur Barbiturates Screen NEGATIVE (NEGATIVE) Ur Phencyclidine Scrn NEGATIVE (NEGATIVE) Ur Amphetamine Screen NEGATIVE (NEGATIVE) U Methamphetamines Scrn NEGATIVE (NEGATIVE) U Benzodiazepines Scrn NEGATIVE (NEGATIVE) U Cocaine Metab Screen POSITIVE (NEGATIVE) U Marijuana (THC) Screen NEGATIVE (NEGATIVE) Meds: Medications Discontinued Medications Generic Name Dose Route Start Last Admin Trade Name Freq PRN Reason Stop Dose Admin Lorazepam 1 mg 01/06/19 07:07 01/06/19 07:22 Ativan PO 01/06/19 07:08 1 mg ONETIME ONE Administration Departure - Departure Time of Disposition: 08:38 Disposition: Home, Self-Care 01 Condition: Good Clinical Impression: Cocaine use Referrals: PCP,None [Primary Care Provider] - Forms: ED Department Discharge Additional Instructions: The following information is given to patients seen in the emergency department who are being discharged to home. This information is to outline your options for follow-up care. We provide all patients seen in our emergency department with a follow-up referral. The need for follow-up, as well as the timing and circumstances, are variable depending upon the specifics of your emergency department visit. If you don't have a primary care physician on staff, we will provide you with a referral. We always advise you to contact your personal physician following an emergency department visit to inform them of the circumstance of the visit and for follow-up with them and/or the need for any referrals to a consulting specialist. The emergency department will also refer you to a specialist when appropriate. This referral assures that you have the opportunity for follow-up care with a specialist. All of these measure are taken in an effort to provide you with optimal care, which includes your follow-up. Under all circumstances we always encourage you to contact your private physician who remains a resource for coordinating your care. When calling for follow-up care, please make the office aware that this follow-up is from your recent emergency room visit. If for any reason you are refused follow-up, please contact the [facility] Emergency Department at and asked to speak to the emergency department charge nurse. follow up with your primary care physician, return to ER if symptoms worsen or change. - My Orders Last 24 Hours: My Active Orders 01/06/19 06:58 EKG Documentation Completion [RC] STAT 01/06/19 07:07 EKG Documentation Completion [RC] STAT - Assessment/Plan Last 24 Hours: My Active Orders 01/06/19 06:58 EKG Documentation Completion [RC] STAT 01/06/19 07:07 EKG Documentation Completion [RC] STAT
[2019-01-06 08:47] VITALS: BP 120/71; PULSE 70
== END 2019-01-06 08:46 | disposition home or self-care (01) ==
LOC: MW.ED 06:51
DX: F14.90 Cocaine use, unspecified, uncomplicated (principal); F17.210 Nicotine dependence, cigarettes, uncomplicated
CPT/HCPCS: 36415; 71046; 80053; 80305; 84484; 85025; 93005; 99285; A9270; 99283

== ENCOUNTER 2021-11-30 12:44 | Emergency (ER) | payer BC, OTHER ==
[2021-11-30 13:02] VITALS: BP 111/58; PULSE 91
== END 2021-11-30 13:23 ==
LOC: MW.ED 12:44
DX: S91.332A Puncture wound without foreign body, left foot, initial encounter (principal); W45.0XXA Nail entering through skin, initial encounter
CPT/HCPCS: 73630-26-LT; 73630-LT; 99283

== ENCOUNTER 2023-03-20 13:43 | Emergency (ER) | payer OTHER ==
[2023-03-20] MEDS ORDERED: Morphine 4 MG/ML Syringe IVPUSH ONE (13:48)
[2023-03-20] MEDS ORDERED: Ondansetron 4 MG/2 ML SDV IVPUSH ONE (13:48)
[2023-03-20 13:58] LABS: BASOPHILS ABSOLUTE AUTO 0.03 K/uL (0.00-0.20); BASOPHILS PERCENT AUTO 0.4 % (0.0-1.0); EOSINOPHILS ABSOLUTE AUTO 0.06 K/uL (0.00-0.45); EOSINOPHILS PERCENT AUTO 0.7 % (0.0-6.0); HEMATOCRIT 42.1 % (42.0-52.0); HEMOGLOBIN 14.6 g/dL (14.0-18.0); IMMATURE GRAN ABSOLUTE AUTO 0.04 K/uL (0.00-0.05); IMMATURE GRAN PERCENT AUTO 0.5 % (0.0-0.4); LYMPHOCYTES ABSOLUTE AUTO 3.49 K/uL (1.00-4.80); LYMPHOCYTES PERCENT AUTO 41.5 % (24.0-44.0); MEAN CORPUSCULAR HEMOGLOBIN 30.5 pg (28.0-32.0); MEAN CORPUSCULAR HGB CONC 34.7 g/dL (32.0-36.0); MEAN CORPUSCULAR VOLUME 88.1 fL (83.0-99.0); MEAN PLATELET VOLUME 8.8 fL (9.4-12.4); MONOCYTES ABSOLUTE AUTO 0.74 K/uL (0.00-0.80); MONOCYTES PERCENT AUTO 8.8 % (0.0-8.0); NEUTROPHILS ABSOLUTE AUTO 4.05 K/uL (1.80-7.70); NEUTROPHILS PERCENT AUTO 48.1 % (41.0-71.0); PLATELET COUNT,PLT 353 K/uL (150-400); RED BLOOD CELL COUNT 4.78 M/uL (4.52-5.90); WHITE BLOOD CELL COUNT,WBC 8.41 K/uL (3.9-11.3)
[2023-03-20] MEDS ORDERED: Iopamidol 755 MG/ML 500 ML Multipack Bottle IVPUSH STA (14:12)
[2023-03-20 14:18] LABS: A/G RATIO 1.1 (0.9-1.6); ALANINE AMINOTRANSFERASE,ALT 18 IU/L (14-63); ALBUMIN 4.1 g/dL (3.4-5.0); ALKALINE PHOSPHATASE 77 U/L (46-116); ASPARTATE AMNIOTRANSFERASE,AST 18 IU/L (15-37); BILIRUBIN TOTAL 0.2 mg/dL (0.2-1.0); BLOOD UREA NITROGEN,BUN 10 mg/dL (7.0-18.0); CALCIUM 8.9 mg/dL (8.5-10.1); CHLORIDE,CL 103 mmol/L (98-107); CREATININE 1.3 mg/dL (0.8-1.3); EST CRCL DRUG DOSING (CG) 77.71 mL/min; ETHANOL BLOOD MEDICAL <3 mg/dL; GLUCOSE RANDOM 91 mg/dL (74-106); LIPASE 22 U/L (16-77); POTASSIUM,K 3.3 mmol/L (3.5-5.1); PROTEIN TOTAL,TP 7.7 g/dL (6.4-8.2); SODIUM,NA 139 mmol/L (136-148)
[2023-03-20 14:20] LABS: INR 0.99 (0.86-1.11); PTT,PARTIAL THROMBOPLSTIN TIME 23.9 SEC (23.9-30.7)
[2023-03-20 14:21] LABS: ESTIMATED GFR 78 mL/min (>60)
[2023-03-20 19:06] VITALS: BP 128/71; PULSE 84
== END 2023-03-20 17:10 | disposition home or self-care (01) ==
LOC: MW.ED 13:43
DX: S42.002A Fracture of unspecified part of left clavicle, initial encounter for closed fracture (principal); V28.49XA Other motorcycle driver injured in noncollision transport accident in traffic accident, initial encounter; Y92.410 Unspecified street and highway as the place of occurrence of the external cause
CPT/HCPCS: 36415; 70450; 71260; 72125; 73030; 74177; 80053; 80307; 83690; 84484; 85025; 85610; 85730; 93005; 96374; 96375; 99285; J2270; J2405; Q9967; 72128-26; 72131-26